=== PATIENT | female | born 1995 | race Caucasian/White ===

== ENCOUNTER 2019-06-11 17:15 | Emergency (ER) | payer SELFPAY ==
[2019-06-11 17:28] VITALS: BP 120/76
--- NOTE | 2019-06-11 17:41 | UC ---
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 She comes primarily for advice about the cough, which is preventing sleep and interfering with her work. Overall feels better. Day 1 of symptoms she tried tawny tea which caused a burning sensation in her throat, so she has avoided it since then. No nausea or vomiting or hx of reflux. - History of Current Complaint Chief Complaint: UCRespiratory Stated Complaint: COUGH Time Seen by Provider: 06/11/19 17:32 Hx Obtained From: Patient Onset/Duration: Gradual Onset, Lasting Days - 4 Severity: Mild Pain Intensity: 0 Cough: Nonproductive Associated Signs & Symptoms: Positive: Negative - Epiglottits Risk Factors Epiglottis Risk Factors: Negative - Allergies/Home Medications Allergies/Adverse Reactions: Allergies Allergy/AdvReac Type Severity Reaction Status Date / Time No Known Allergies Allergy Verified 06/11/19 17:28 Home Medications: Home Medications Acetaminophen TAB* [Tylenol TAB*] 650 mg PO Q4H PRN 06/11/19 [History Confirmed 06/11/19] Benzonatate 200 mg PO TID PRN #30 capsule 06/11/19 [Rx] Levonorgestrel (IUD) (NF) [Mirena (NF)] 20 mcg IU ONCE 06/11/19 [History Confirmed 06/11/19] PMH/Surg Hx/FS Hx/Imm Hx Previously Healthy: Yes - Surgical History Surgical History: None - Family History Known Family History: Positive: Other - father has RA, mother healthy. - Social History Occupation: Employed Full-time Alcohol Use: Rare Substance Use Type: None Smoking Status (MU): Never Smoked Tobacco Review of Systems All Other Systems Reviewed And Are Negative: Yes Constitutional: Positive: Fatigue Skin: Positive: Negative Eyes: Positive: Negative ENT: Positive: Sore Throat - now resolved, Nasal Discharge Respiratory: Positive: Cough. Negative: Shortness Of Breath Cardiovascular: Negative: Palpitations, Chest Pain Gastrointestinal: Positive: Negative Genitourinary: Positive: Negative Motor: Positive: Negative Neurovascular: Positive: Negative Musculoskeletal: Positive: Negative Neurological/Mental Status: Positive: Negative Psychological: Positive: Negative Is Patient Immunocompromised?: No Physical Exam Triage Information Reviewed: Yes Appearance: Well-Appearing, No Pain Distress, Thin Vital Signs: Initial Vital Signs Temp 99.0 F 06/11/19 17:24 Pulse 68 06/11/19 17:24 Resp 16 06/11/19 17:24 BP 120/76 06/11/19 17:24 Pulse Ox 100 06/11/19 17:24 Eyes: Positive: Conjunctiva Clear ENT: Positive: Pharynx normal, Tonsillar swelling - past tonsillectomy but has small amount of left tonsillar tissue.. Negative: Tonsillar exudate Neck: Positive: Supple, Nontender, No Lymphadenopathy Respiratory: Positive: Lungs clear, Normal breath sounds, No respiratory distress Cardiovascular: Positive: RRR, No Murmur Musculoskeletal Exam: Normal Neurological Exam: Normal Psychological Exam: Normal Skin Exam: Normal Throat Pain/Nasal Course/Dx - Course Course Of Treatment: discussed symptomatic treatment of viral illness. - Differential Dx/Diagnosis Differential Diagnosis/HQI/PQRI: Laryngitis, Pharyngitis, Sinusitis, URI Provider Diagnosis: URI, acute Discharge ED - Sign-Out/Discharge Documenting (check all that apply): Patient Departure All imaging exams completed and their final reports reviewed: No Studies - Discharge Plan Condition: Stable Disposition: HOME Prescriptions: Benzonatate 200 mg PO TID PRN #30 capsule PRN Reason: Cough Patient Education Materials: Upper Respiratory Infection (ED) Referrals: No Primary Care Phys,NOPCP [Primary Care Provider] - Additional Instructions: You are recovering from a viral illness. Benzonatate (tessalon perles) can be used a cough suppressant, and might cause mild drowsiness. Use of Flonase spray 2 sprays to both nostrils once daily will decrease drainage which is triggering your cough. You might also use long acting dextromethorphan (Delsym DM) for cough suppression. 'Follow up if you develop fever or shortness of breath. - Billing Disposition and Condition Condition: STABLE Disposition: Home
== END 2019-06-11 18:00 | disposition home or self-care (01) ==
LOC: UCEAST 17:15
DX: J06.9 Acute upper respiratory infection, unspecified (principal); J35.8 Other chronic diseases of tonsils and adenoids
CPT/HCPCS: 99212; G0463

== ENCOUNTER 2021-07-24 04:13 | Inpatient (IN) ==
[2021-07-24] MEDS ORDERED: Buffered Lidocaine 1% SYRIN 1 ml INTRADERM ONE (04:17)
[2021-07-24] MEDS ORDERED: Lactated Ringers 1000 ml BAG 1,000 ML IV ONE (04:17)
[2021-07-24] MEDS ORDERED: Penicillin G Potassium IV 5,000,000 UNITS in NS 0.9% 100 ml BAG 100 ML IVPB ONE (04:45)
[2021-07-24 04:52] LABS: ABS Eosinophils 0.1 10^3/ul (0-0.6); ABS Lymphocytes 2.1 10^3/ul (1.0-4.8); ABS Monocytes 0.8 10^3/ul (0-0.8); ABS Neutrophils 9.8 10^3/ul (1.5-7.7); Eosinophil % 0.8 %; Lymphocyte % 16.4 %
[2021-07-24] MEDS ORDERED: Lactated Ringers 1000 ml BAG 1,000 ML IV SCH ×3 (05:00→08:00)
[2021-07-24] MEDS ORDERED: Penicillin G Potassium IV 3,000,000 UNITS in NS 0.9% 100 ml BAG 100 ML IVPB SCH ×2 (05:00→09:30)
[2021-07-24] MEDS ORDERED: Oxytocin in LR 20 UNITS/1,000 ML BAG IVPB ONE ×2 (05:01→05:24)
[2021-07-24 05:21] LABS: Urine Benzodiazepine Screen None Detected (None Detect); Urine Cannabinoids Screen None Detected (None Detect); Urine Opiates Screen None Detected (None Detect)
[2021-07-24] MEDS ORDERED: Lidocaine 1% VIAL 10 MG/ML VIAL ONE (06:29)
[2021-07-24] MEDS ORDERED: Dibucaine 1% OINT 28.35 GM TUBE PR PRN (07:04)
[2021-07-24] MEDS ORDERED: Witch Hazel PAD JAR TOPICAL PRN (07:04)
[2021-07-24] MEDS ORDERED: Oxytocin in LR 20 UNITS/1,000 ML BAG IVPB SCH (08:00)
[2021-07-24 09:36] LABS: Hematocrit 38 % (35-47); Mean Corpuscular HGB Conc 34 g/dL (31-36); Mean Corpuscular Hemoglobin 32 pg (27-31); Mean Corpuscular Volume 93 fL (80-97); Mean Platelet Volume 11.2 fL (7.4-10.4); Platelet Count 115 10^3/uL (150-450); Red Cell Distribution Width 13 % (10-15); White Blood Count 12.6 10^3/uL (3.5-10.8)
[2021-07-25 07:08] LABS: Hematocrit 29 % (35-47); Hemoglobin 9.9 g/dL (12.0-16.0); Mean Corpuscular HGB Conc 35 g/dL (31-36); Mean Corpuscular Hemoglobin 32 pg (27-31); Mean Corpuscular Volume 92 fL (80-97); Mean Platelet Volume 10.1 fL (7.4-10.4); Platelet Count 113 10^3/uL (150-450); Red Blood Count 3.11 10^6 /uL (3.70-4.87); Red Cell Distribution Width 13 % (10-15); White Blood Count 12.8 10^3/uL (3.5-10.8)
[2021-07-25 07:48] LABS: ABS Basophils 0.1 10^3/ul (0-0.2); ABS Eosinophils 0.1 10^3/ul (0-0.6); ABS Lymphocytes 2.3 10^3/ul (1.0-4.8); ABS Monocytes 0.8 10^3/ul (0-0.8); ABS Neutrophils 9.5 10^3/ul (1.5-7.7); Eosinophil % 0.5 %; Lymphocyte % 18.3 %
[2021-07-26 09:51] VITALS: BP 107/66
[2021-07-26] MEDS ORDERED: Measles, Mumps,Rubella VACC 0.5 ML/VIAL ONE (12:05)
[2021-07-27] MEDS ORDERED: Measles, Mumps,Rubella VACC 0.5 ML/VIAL SUBCUT ONE (09:00)
== END 2021-07-26 13:21 | disposition home or self-care (01) | DRG 542 ==
LOC: MCHOBOUT 04:13 → MCHOB 04:32
PROVIDERS: ADMIT Midwife; ATTEND Midwife

== ENCOUNTER 2024-04-17 17:02 | Inpatient (IN) ==
[2024-04-17] MEDS ORDERED: Buffered Lidocaine 1% SYRIN 1 ml INTRADERM ONE ×2 (17:18→18:34)
[2024-04-17 18:09] LABS: Urine Appearance Clear; Urine Bilirubin Negative (Negative); Urine Blood Negative (Negative); Urine Color Light-Yellow; Urine Glucose Negative (Negative); Urine Ketones Negative (Negative); Urine Nitrite Negative (Negative); Urine Protein Negative (Negative); Urine Specific Gravity 1.008 (1.002-1.030); Urine Urobilinogen Negative (Negative); Urine pH 6.5 (5.0-8.0)
[2024-04-17 18:15] LABS: Urine Bacteria 1+ /HPF (Absent); Urine Red Blood Cell Trace(0-2/hpf) /HPF (0-Trace); Urine Squamous Epithelial Cell Present /HPF (Absent); Urine White Blood Cell Trace(0-5/hpf) /HPF (0-Trace)
[2024-04-17] MEDS ORDERED: Lidocaine 1% VIAL 10 MG/ML 30 ML VIAL INJ PRN (18:34)
[2024-04-17] MEDS ORDERED: Lactated Ringers 1000 ml BAG 1,000 ML IV ONE (18:34)
[2024-04-17] MEDS: Betamethasone 6 mg/ml 5 ml VIAL IM SCH (18:49)
[2024-04-17] MEDS ORDERED: Lactated Ringers 1000 ml BAG 1,000 ML IV SCH (19:00)
[2024-04-17] MEDS ORDERED: ceFAZolin 1 GM ADVAN 1 GM in NS 0.9% 50 ML 50 ML IVPB SCH (19:30)
[2024-04-17 19:39] LABS: Urine Benzodiazepine Screen None Detected (None Detect); Urine Cannabinoids Screen None Detected (None Detect); Urine Opiates Screen None Detected (None Detect)
[2024-04-17] MEDS: ceFAZolin 1 GM in Dextrose 1 GM/50 ML BAG IVPB SCH (20:20)
[2024-04-17 20:21] LABS: ABS Eosinophils 0.1 10^3/uL (0.0-0.5); ABS Lymphocytes 2.1 10^3/uL (1.0-4.8); ABS Neutrophils 10.2 10^3/uL (1.5-7.6); Eosinophil % 0.7 %; Hematocrit 36.8 % (35-45); Hemoglobin 12.8 g/dL (11.5-14.3); Lymphocyte % 15.9 %; Mean Corpuscular Hemoglobin 32.2 pg (27-33); Mean Corpuscular Hgb Conc 34.8 g/dL (31-36); Mean Corpuscular Volume 92.7 fL (80-97); Platelet Count 119 10^3/uL (150-450); Red Blood Count 3.97 10^6/uL (3.63-4.92); Red Cell Distribution Width 13.6 % (12-17); White Blood Count 13.4 10^3/uL (3.8-11.8)
[2024-04-18] MEDS ORDERED: Ondansetron 4 mg VIAL 2 MG/ML 2 ml VIAL ONE (07:09)
[2024-04-18] MEDS ORDERED: Oxytocin 10 UNITS/ML 1 ML VIAL ONE (07:09)
[2024-04-18] MEDS ORDERED: Morphine PF AMP (0.5MG/ML) 5 MG/10 ML AMP ONE (07:11)
[2024-04-18] MEDS ORDERED: ceFOXitin 2 GM IVPREMIX 2 GM/50 ML BAG ONE (07:15)
[2024-04-18] MEDS ORDERED: Phenylephrine 40 mcg/mL 10mL (400mcg) SYRINGE ONE (07:31)
[2024-04-18] MEDS: ceFOXitin 2 GM IVPREMIX 2 GM/50 ML BAG IVPB ONE (07:35)
[2024-04-18] MEDS ORDERED: Metoclopramide 5 MG/ML VIAL (10 mg) ONE (07:48)
[2024-04-18] MEDS ORDERED: Dexamethasone IV 4 MG/ML VIAL 1 ml VIAL ONE (07:55)
[2024-04-18] MEDS ORDERED: Acetaminophen IV 1 GM/100ML 1,000 MG/100 ML BAG IV ONE (08:08)
[2024-04-18 08:47] LABS: Urine Appearance Clear; Urine Bilirubin Negative (Negative); Urine Blood Negative (Negative); Urine Color Colorless; Urine Glucose Negative (Negative); Urine Ketones Trace (Negative); Urine Nitrite Negative (Negative); Urine Protein Negative (Negative); Urine Specific Gravity 1.005 (1.002-1.030); Urine Urobilinogen Negative (Negative); Urine pH 6.5 (5.0-8.0)
[2024-04-18] MEDS ORDERED: Glycerin ADULT 2.4 gm SUPP PR PRN (08:52)
[2024-04-18] MEDS ORDERED: Dibucaine 1% OINT 28.35 GM TUBE PR PRN (08:52)
[2024-04-18] MEDS ORDERED: Witch Hazel PAD JAR TOPICAL PRN (08:52)
[2024-04-18] MEDS ORDERED: Metoclopramide 5 MG/ML VIAL (10 mg) IV PRN (08:59)
[2024-04-18] MEDS ORDERED: Acetaminophen IV 1 GM/100ML 1,000 MG/100 ML BAG IV PRN (08:59)
[2024-04-18] MEDS ORDERED: Ondansetron 4 mg VIAL 2 MG/ML 2 ml VIAL IV PRN (08:59)
[2024-04-18] MEDS ORDERED: Naloxone 0.4 mg VIAL 0.4 mg/ml 1 ml VIAL IV PUSH PRN (08:59)
[2024-04-18] MEDS ORDERED: Lactated Ringers 1000 ml BAG 1,000 ML IV SCH (09:00)
[2024-04-18 09:14] LABS: Urine Benzodiazepine Screen None Detected (None Detect); Urine Cannabinoids Screen None Detected (None Detect); Urine Opiates Screen None Detected (None Detect)
[2024-04-18] MEDS: Oxytocin in LR 20,000 MILLI.UNIT/1,000 ML BAG IV SCH (11:04)
[2024-04-19 09:09] LABS: ABS Basophils 0.1 10^3/uL (0.0-0.1); ABS Lymphocytes 2.4 10^3/uL (1.0-4.8); ABS Monocytes 1.2 10^3/uL (0.0-0.9); ABS Neutrophils 15.6 10^3/uL (1.5-7.6); ABS Nucleated RBC 0.01 10^3/ul; Eosinophil % 0.1 %; Hematocrit 30.6 % (35-45); Hemoglobin 10.4 g/dL (11.5-14.3); Lymphocyte % 12.4 %; Mean Corpuscular Hemoglobin 31.9 pg (27-33); Mean Corpuscular Hgb Conc 33.8 g/dL (31-36); Mean Corpuscular Volume 94.2 fL (80-97); Mean Platelet Volume 10.5 fL (7.5-11.2); Nucleated Red Blood Cells % 0.1 %/100WBC (0.0-0.8); Platelet Count 136 10^3/uL (150-450); Red Blood Count 3.25 10^6/uL (3.63-4.92); Red Cell Distribution Width 13.6 % (12-17); White Blood Count 19.3 10^3/uL (3.8-11.8)
[2024-04-21 01:44] VITALS: BP 112/68
== END 2024-04-21 02:45 | disposition home or self-care (01) | DRG 540 ==
LOC: MCHOBOUT 17:02 → MCHOB 18:26
PROVIDERS: ADMIT Obstetrics & Gynecology; ATTEND Obstetrics & Gynecology